=== PATIENT | male | born 1965 | race Caucasian/White ===

== ENCOUNTER 2018-06-02 11:39 | Emergency (ER) | payer MEDICAID, OTHER ==
[~2018-06-02] VITALS: Ht 180.3 cm; Wt 86.2 kg
--- NOTE | 2018-06-02 11:51 | NUR ---
Dr Wood at the bedside for MSE.
[2018-06-02] MEDS ORDERED: ONDANSETRON 4 MG/2 ML VIAL IV ONE (12:00)
[2018-06-02] MEDS ORDERED: HYDROMORPHONE 1 MG/1 ML DISP.SYRIN IV ONE (12:00)
[2018-06-02] MEDS ORDERED: IV NORMAL SALINE 1000 ML BAG IV ONE (12:00)
[2018-06-02] MEDS ORDERED: ONDANSETRON 4 MG/2 ML VIAL ONE (12:05)
[2018-06-02] MEDS ORDERED: HYDROMORPHONE 1 MG/1 ML DISP.SYRIN ONE (12:05)
[2018-06-02 12:09] LABS: BASOPHILS # (AUTO) 0.2 K/uL (0.0-8.0); BASOPHILS % (AUTO) 2.6 % (0.0-2.0); EOSINOPHILS # (AUTO) 0.3 K/uL (0.0-0.7); EOSINOPHILS % (AUTO) 2.7 % (0.0-7.0); HEMATOCRIT 48.5 % (36.7-47.1); HEMOGLOBIN 16.5 g/dL (12.5-16.3); LYMPHOCYTES # (AUTO) 1.5 K/uL (20.0-40.0); LYMPHOCYTES % (AUTO) 15.8 % (20.5-51.5); MEAN CORPUSCULAR HEMOGLOBIN 30.8 uug (23.8-33.4); MEAN CORPUSCULAR HGB CONC 34 g/dL (32.5-36.3); MEAN CORPUSCULAR VOLUME 90.1 fL (73.0-96.2); MONOCYTES # (AUTO) 0.7 K/uL (2.0-10.0); MONOCYTES % (AUTO) 6.9 % (0.0-11.0); NEUTROPHILS # (AUTO) 6.8 K/uL (1.8-8.9); PLATELET COUNT (AUTO) 268 K/uL (152-348); RED BLOOD CELL COUNT(AUTO) 5.38 MIL/uL (4.06-5.63); WHITE BLOOD COUNT (AUTO) 9.4 K/uL (3.6-10.2)
[2018-06-02 12:15] LABS: CREATININE 0.9 mg/dL (0.6-1.3); POTASSIUM 4.7 mmol/L (3.5-5.1)
[2018-06-02 12:21] LABS: BILIRUBIN,DIRECT 0.1 mg/dL (0.0-0.2); BILIRUBIN,TOTAL 0.4 mg/dL (0.2-1.0); TOTAL PROTEIN, SERUM 7.4 g/dL (6.4-8.2)
--- NOTE | 2018-06-02 13:00 | NUR ---
Left message for Simran(foster care social worker), awaiting call back.
--- NOTE | 2018-06-02 13:15 | NUR ---
Spoke to PHUONG Khalil psychotherapist social worker. ETA 10 min.
--- NOTE | 2018-06-02 13:30 | NUR ---
Simran, pressed or blown glass worker at the bedside, speaking w/ pt. Resources provided by Simran. Warm clothing provided, as well as lunch. Pt recieved pack dinner.
--- NOTE | 2018-06-02 14:11 | NUR ---
Patient discharged in stable conditon. Written and verbal after care instructions given. Patient verbalizes understanding of instructions. Pt left ER w/ steady gait.
--- NOTE | 2018-06-02 15:08 | NUR ---
1:25pm: SW arrived to ED for SS consult. SW met with Dr. Wood and discussed patient's case. SW then met with patient in his assigned ED room. Patient is a 52 year old male; he was receptive to meeting with this SW. Patient is homeless. Patient is oriented x 4. Patient's only sources of income is GR. SW discussed discharge plans with patient, including shelters and homeless community resources. Patient declined shelters, and stated he will be returning to his previous living arrangements. SW asked if there was a family member or friend that SW could call for the patient, and patient stated not having anyone to call. Patient was provided with a meal. SW provided patient with a pair of pants and a sweater jacket with a hoodie. SW explored the different community resources with patient, and patient agreed to receiving information on places he can go for meals, food pantries, and showers, along with a list of winter shelters just in case he changes his mind. A list of the winter shelters throughout [facility] was provided to the patient, and SW reviewed the list with the patient pointing out the pick-up locations and times for each prison. Patient expressed understanding. SW provided patient with a copy of the [facility] Homeless Resource Directory, which lists dates, times, and locations of where hot meals and showers and sack lunches are offered. Patient also agreed to a list of medical clinics, mental health clinics, and substance abuse resources. SW provided this list to the patient. Patient declined any transportation that was offered by the hospital, and stated he would be leaving the hospital on his own. JONES informed RONAN Wei of above. Copy of the resources provided were filed in patient's ED chart. Patient signed the homeless patient waiver form, which was filed in patient's ED chart. No further SS interventions needed at this time.
== END 2018-06-02 14:12 | disposition home or self-care (01) ==
LOC: ER 11:39
DX: R20.2 Paresthesia of skin (principal); R11.0 Nausea; R61 Generalized hyperhidrosis; T62.91XA Toxic effect of unspecified noxious substance eaten as food, accidental (unintentional), initial encounter; Z59.0 Homelessness; Y92.89 Other specified places as the place of occurrence of the external cause
CPT/HCPCS: 36415; 71045; 80048; 80076; 83690; 84484; 85025; 85730; 93005; 96374; 96375; 99284; J1170; J2405; 70030-TC; A4663; J7030